=== PATIENT | male | born 1945 | race Two or more races ===

== ENCOUNTER 2016-07-29 13:57 | Inpatient (IN) | payer MEDICARE, OTHER ==
[2016-07-29] MEDS ORDERED: IOPAMIDOL 300 (61%) 150 ML VIAL IV ONE (13:58)
[2016-07-29 16:42] LABS: ABSOLUTE NEUTROPHIL COUNT 7.4 K/mm3 (1.8-7.7); BASO % 0.2 % (0.2-1.0); EOS % 0.1 % (0.9-2.9); HEMATOCRIT 27.2 % (32.0-52.0); HEMOGLOBIN 9.1 gm/l (14.0-18.0); IMM NEUT% 0.3 % (0-1); LYMPH % 11.1 % (15-45); MEAN CORPUSCULAR HEMOGLOBIN 34.5 pg (27.0-31.0); MEAN CORPUSCULAR HGB CONC 33.5 g/dl (33.0-37.0); MEAN PLATELET VOLUME 11.6 fl (7.4-10.4); MONO # 0.4 (0.0-0.8); MONO % 4.8 % (4-12); NEUT % 83.5 % (43-75); PLATELET COUNT 110 K/mm3 (130-400); RED CELL DISTRIBUTION WIDTH 12.4 % (11.5-14.5)
[2016-07-29 16:48] LABS: ALB/GLOB RATIO 1.1 (>1.0); ALBUMIN 3.4 gm/dL (3.5-5.7); CALCIUM 8.7 mg/dL (8.6-10.3)
[2016-07-29] MEDS ORDERED: SODIUM CHLORIDE 0.9% 1,000 ML ONE (17:45)
[2016-07-29] MEDS ORDERED: VANCOMYCIN HCL 1 G/20 ML VIAL ONE (17:55)
[2016-07-29 18:27] LABS: LIPASE 27 U/L (11-82)
--- NOTE | 2016-07-29 19:01 | CT ---
HEAD W/O CON History: Metastatic disease. Weight loss. Comparison: None. Procedure: 1 mm axial images were obtained through the head from the vertex to the base of the skull without intravenous contrast. Stacked reconstructed 5 mm images were then obtained in the axial, coronal and sagittal planes. Findings: The lateral ventricles, cerebral sulci and sylvian fissures are prominent. There is asymmetric encephalomalacia within the left frontal region. No evidence of midline shift is seen. No definite mass or mass effect is visualized. No evidence of intra or extra-axial fluid collections or hemorrhage is seen. Prominent periventricular deep white matter low-attenuation changes are observed. The basilar cisterns are uneffaced. The posterior fossa structures are unremarkable. There appears to be a chronic deformity involving the base of the nasal bones on the left orbit with slight offset of the globes. Metallic suture is suggested within the region of the left zygoma. These findings appear to be chronic. Impression: 1. Diffuse cerebral atrophy. 2. No definite intracranial mass or evidence to suggest acute intracranial hemorrhage. 3. Chronic changes involving the base of the nasal bones in the left orbit with the left globe appearing to be slightly recessed when compared to the right globe. Likely associated encephalomalacia is seen within the underlying left frontal lobe as well. 4. Prominent periventricular deep white matter low-attenuation changes most consistent with small vessel ischemia considering patient age.
--- NOTE | 2016-07-29 19:50 | CT ---
Exam Type: CHEST W/ CON, ABD/PELVIS W/ CON Date and Time: 07/29/2016 6:11 PM Clinical information: Suspected metastasis to the right humerus. Comparison: None Procedure: Imaging device: [employer] Aquilion [address] scanner 1 mm axial images were obtained through the chest, abdomen and pelvis. Stacked reconstructed 3, 4 and 5 mm images were photographed in the axial coronal and sagittal planes. No oral contrast was utilized for this examination. 100 ml of Isovue-300 was injected intravenously. Exam: with intravenous contrast. FINDINGS: Chest: Thyroid Gland: The thyroid gland appears of normal size with no discrete masses visualized. Mediastinum: There are 2 prominent pretracheal lymph nodes identified, one seen on image #44 measuring 17 x 10 mm in size. A second slightly caudal to the first measures 23 x 12 mm in size on image #46. Hilar structures: The hilar structures are normal with no mass or enlarged adenopathy observed. Heart: The heart size is appropriate. Aorta: The ascending and descending aorta and the aortic arch are unremarkable. No significant asymmetric enlargement is observed. Pericardium: No discrete pericardial abnormalities or evidence of significant fluid is observed. Esophagus: The visualized portions of the esophagus are unremarkable. Central airways: Unremarkable. Lung parenchyma: As seen on prior shoulder CT examination, there are numerous subcentimeter nodular foci seen within both hemithoraces, too numerous to count. The majority however appear to be located within the upper lobes. No effusion or pneumothorax is visualized. There is prominent edematous changes within the soft tissues of the right lateral hemithorax which may be related to the patient's humeral fracture. Abdomen/Pelvis: Liver: The liver appears to be of significantly decreased attenuation when compared to the spleen. The findings are most commonly associated with diffuse fatty infiltration with no definitive focal mass visualized. Spleen: The spleen is homogeneous and does not appear to be enlarged. Gallbladder: Normal without enlargement or evidence of adjacent inflammatory changes. Pancreas: Normal without enlargement or evidence of adjacent inflammatory changes. Adrenal glands: A small indeterminate left adrenal nodule is seen on image #102 measuring 8 mm in size. Abdominal aorta: Dense atherosclerotic vascular calcification is seen. There is no focal aneurysm visualized. Kidneys: The kidneys appear to be symmetric in size with no perinephric inflammatory changes are identified. No current findings of hydronephrosis are seen. Bowel structures: The visualized bowel is of normal caliber without evidence of dilatation or obstruction. No free fluid or mesenteric inflammatory changes are identified. Appendix: The appendix is well-visualized and appears to be of normal caliber. No periappendiceal inflammatory changes or CT findings of appendicitis are currently observed. Bladder: The bladder is of normal contour. No wall thickening or significant distention is observed. Hernia: A small fat filled left inguinal hernia is visualized. Adenopathy: No significant enlarged adenopathy is visualized. Osseous structures: There is evidence suggesting a right eccentric L4 vertebral body hemangioma. No lytic or blastic lesion is visualized. Pelvic structures: There is evidence of enlargement of the prostate gland. IMPRESSION: 1. A comminuted fracture of the proximal right humerus with edematous changes within the soft tissues of the lateral right hemithorax possibly secondary to the previous trauma. 2. Mild mediastinal adenopathy. 3. Reidentification of too numerous to count subcentimeter nodular foci throughout both hemithoraces, predominating within the upper lung zones. The possibility of metastatic disease is raised, an additional consideration would be a chronic infectious or inflammatory process such as granulomatous disease. 4. Findings most commonly associated with diffuse fatty infiltration of the liver. 5. A small indeterminate 8 mm left adrenal nodule. 6. A small fat filled left inguinal hernia. 7. An enlarged prostate gland.
--- NOTE | 2016-07-29 19:56 | CT ---
NECK SOFT TISSUE W/ CON History: A suspected metastatic pathologic fracture to the right shoulder. Comparison: None. Procedure: 1 mm axial images were obtained through the neck following the administration of 50cc's of Isovue-300 intravenous contrast. Stacked reconstructed 3 mm images were then photographed in the axial, coronal and sagittal planes. Findings: Images of the intracranial contents appear to be relatively unremarkable. There is note made of an area of encephalomalacia within the left frontal region. A deformity of the base of the nasal bones is identified and appearing to involve the left orbit with metallic suture seen in the region of the left zygoma. The posterior pharyngeal tissues appear to be normal and symmetric. The parotid and submandibular glands are unremarkable. The appearance of the tongue base is within expected. The thyroid gland is unremarkable. No enlarged cervical chain adenopathy is visualized. Prominent mid cervical spondylosis changes are incidentally seen. Scans to the upper lung zones again demonstrate the numerous subcentimeter nodular foci which may reflect an infectious or inflammatory process such as granulomatous disease though metastasis cannot be excluded. The central airways appear to be clear. Impression: 1. No discrete mass or enlarged adenopathy is visualized. 2. Numerous subcentimeter nodular foci within the visualized upper lung zones with considerations including infectious or inflammatory process such as granulomatous disease versus metastasis. 3. Mid cervical spondylosis changes. 4. A chronic deformity involving the base of the nasal bones and left orbit with evidence of a recessed left globe.
[2016-07-29] MEDS ORDERED: OXYCODONE/ACETAMINOPHEN 5/325 MG TABLET ONE (20:32)
[2016-07-29] MEDS ORDERED: MAGNESIUM HYDROXIDE 30 ML UDCUP PO PRN (23:55)
[2016-07-29] MEDS ORDERED: ACETAMINOPHEN 325 MG TABLET PO PRN (23:55)
[2016-07-29] MEDS ORDERED: BISACODYL 10 MG SUP PR PRN (23:55)
[2016-07-29] MEDS ORDERED: MENTHOL/CETYLPYRD 1 EACH LOZENGE PO PRN (23:55)
[2016-07-29] MEDS ORDERED: BISACODYL 5 MG TABLET.EC PO PRN (23:55)
[2016-07-29] MEDS ORDERED: BLISTEX LIPSTICK 1 EACH TP PRN (23:55)
[2016-07-29] MEDS ORDERED: SODIUM CHLORIDE 0.9% 100 ML IV PRN (23:55)
[2016-07-30] MEDS ORDERED: MULTIVITAMINS 10 ML, FOLIC ACID 2 MG, MAGNESIUM SULFATE 1 G/2 ML 2 G, THIAMINE HCL 100 ... IV ONE ×5 (00:02)
[2016-07-30] MEDS ORDERED: MULTIVITAMINS 1,000 ML IV ONE (00:50)
[2016-07-30] MEDS ORDERED: SODIUM CHLORIDE 0.9% 1,000 ML ONE (00:51)
[2016-07-30] MEDS ORDERED: PUMP TUBING ONE (01:05)
[2016-07-30] MEDS ORDERED: IV START KIT ONE ×2 (01:12→01:41)
[2016-07-30 01:28] VITALS: BMI 19.3
[2016-07-30] MEDS: HYDROCODONE/ACETAMINOPHEN 5/325MG TABLET PO PRN ×4 (02:07→19:59)
[2016-07-30] MEDS ORDERED: METOPROLOL SUCCINATE (XL) 50 MG TAB.PRT.SR PO ONE (03:00)
[2016-07-30] MEDS: METOPROLOL SUCCINATE (XL) 50 MG TAB.PRT.SR PO SCH ×2 (03:04→08:35)
[2016-07-30 03:54] LABS: PH,URINE 6.5 (5.0-8.0); URINE BILIRUBIN NEGATIVE (NEGATIVE); URINE BLOOD 1+ (NEGATIVE); URINE GLUCOSE (UA) NEGATIVE (NEGATIVE); URINE LEUKOCYTE ESTERASE NEGATIVE (NEGATIVE); URINE NITRITE NEGATIVE (NEGATIVE); URINE PROTEIN NEGATIVE (NEGATIVE)
[2016-07-30 03:55] LABS: URINE UROBILINOGEN 4 mg/dL (0-1 mg/dl)
[2016-07-30 03:56] LABS: URINE APPEARANCE SL CLOUDY; URINE COLOR DARK YELLOW
[2016-07-30 04:00] LABS: URINE WBC 0-1 /hpf
[2016-07-30] MEDS ORDERED: TUBERCULIN PURIF PROT DERIV ID ONE ×3 (05:01→09:18)
[2016-07-30 07:01] LABS: ABSOLUTE NEUTROPHIL COUNT 5.2 K/mm3 (1.8-7.7); BASO % 0.3 % (0.2-1.0); EOS % 0.6 % (0.9-2.9); HEMATOCRIT 20.9 % (32.0-52.0); HEMOGLOBIN 7.1 gm/l (14.0-18.0); IMM NEUT% 0.4 % (0-1); LYMPH # 1.1 (1.0-4.8); LYMPH % 15.3 % (15-45); MEAN CELL VOLUME 101.5 fl (80.0-94.0); MEAN CORPUSCULAR HEMOGLOBIN 34.5 pg (27.0-31.0); MEAN PLATELET VOLUME 11.3 fl (7.4-10.4); MONO # 0.5 (0.0-0.8); MONO % 7.4 % (4-12); PLATELET COUNT 92 K/mm3 (130-400); RED CELL DISTRIBUTION WIDTH 12.4 % (11.5-14.5)
[2016-07-30 07:16] LABS: INR 1.28; PROTHROMBIN TIME 13.7 SECONDS (9.3-11.4)
[2016-07-30 07:34] LABS: ALBUMIN 2.5 gm/dL (3.5-5.7); CALCIUM 7.7 mg/dL (8.6-10.3); MAGNESIUM 2.5 mg/dL (1.9-2.7)
[2016-07-30] MEDS: ASPIRIN (ENTERIC COATED) 81 MG TABLET.EC PO SCH (08:35)
[2016-07-30] MEDS: DOCUSATE SODIUM 100 MG CAPSULE PO SCH ×2 (08:35→20:01)
[2016-07-30] MEDS: PANTOPRAZOLE 40 MG TABLET DR PO SCH (08:35)
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
[2016-07-30] MEDS: APIXABAN 5 MG TABLET PO SCH ×2 (10:40→21:13)
[2016-07-30] MEDS ORDERED: FUROSEMIDE 20 MG/2 ML VIAL IV ONE (11:21)
[2016-07-30] MEDS ORDERED: DIPHENHYDRAMINE HCL 25 MG CAPSULE PO ONE (11:21)
[2016-07-30] MEDS ORDERED: SODIUM CHLORIDE 0.9% 500 ML IV PRN (11:21)
--- NOTE | 2016-07-30 11:21 | PDOC43 ---
- Subjective Chief Complaint: shoulder pain, weight loss. Patient reports feeling pretty good. A little dyspnea, but R shoulder pain is his main complaint. - Objective Vital Signs Temperature 98.1 F 07/30/16 07:00 Pulse Rate 107 07/30/16 07:00 Respiratory Rate 18 07/30/16 07:00 Blood Pressure 141/72 07/30/16 07:00 O2 Saturation by Pulse Oximetry 100 07/30/16 07:00 Oxygen Delivery Method Room Air Oxygen Flow Rate 0 Vital Signs Last 12 Hours Temp Pulse Resp BP Pulse Ox 07/30/16 07:00 98.1 F 107 18 141/72 100 07/30/16 03:41 98.4 F 125 20 122/77 98 07/30/16 02:50 130 22 136/82 98 07/30/16 01:00 98.4 F 132 22 133/93 100 Intake and Output 07/28/16 07/29/16 07/30/16 23:59 23:59 23:59 Intake Total 2150 Output Total 80 Balance 2069 General: Alert, Cooperative, No Acute Distress HEENT: Atraumatic Lungs: Clear to Auscultation Bilaterally Cardiovascular: Irregular, No Murmur Abdomen: Soft, Normal Bowel Sounds, Non-Distended, No Tenderness Extremities: Other (R shoulder with pain, swelling, bruising. Pulse good in hand.), No Edema Skin: Other (Pale) Neurological: Normal Speech Psych/Mental Status: Normal Affect (Appears to be generally feeling better overall.) Laboratory 07/30/16 06:30 07/30/16 06:30 07/30/16 07/30/16 07/30/16 06:30 03:50 01:30 RBC 2.06 L MCV 101.5 H MCH 34.5 H PT 13.7 H VBG Lactate 2.8 H Calcium 7.7 L Total Bilirubin 3.1 H AST 81 H Total Protein 5.0 L Albumin 2.5 L Urine Urobilinogen 4 mg/dl H Current Medications: Current meds reviewed in EMR. Active Medications Acetaminophen (Tylenol) 650 mg PO Q6H PRN PRN Reason: Pain or Temperature > 100.5 F Acetaminophen/Hydrocodone Bitart ([place]y 5/325) 0.5 - 1 tab PO Q4H PRN PRN Reason: Pain Last Admin: 07/30/16 08:35 Dose: 1 tab Amitriptyline HCl (Elavil) 50 mg PO BEDTIME [facility] Apixaban (Eliquis) 5 mg PO BID [facility] Last Admin: 07/30/16 10:40 Dose: 5 mg Aspirin (Ecotrin) 81 mg PO DAILY [facility] Last Admin: 07/30/16 08:35 Dose: 81 mg Benzocaine/Menthol (Cepacol) 1 each PO PRN PRN PRN Reason: Sore Throat Bisacodyl (Dulcolax) 10 mg HI DAILY PRN PRN Reason: Constipation Bisacodyl (Dulcolax) 5 mg PO DAILY PRN PRN Reason: Constipation Docusate Sodium (Colace) 100 mg PO BID [facility] Last Admin: 07/30/16 08:35 Dose: 100 mg Sodium Chloride (Sodium Chloride 0.9%) 100 mls @ 25 mls/hr IV PRN PRN PRN Reason: Flush Lorazepam (Ativan) 1 mg IV Q2H PRN PRN Reason: Agitation / withdrawal Magnesium Hydroxide (Milk Of Magnesia) 30 ml PO DAILY PRN PRN Reason: Constipation Metoprolol Succinate (Toprol Xl) 50 mg PO DAILY [facility] Last Admin: 07/30/16 08:35 Dose: 50 mg Pantoprazole Sodium (Protonix) 40 mg PO DAILY [facility] Last Admin: 07/30/16 08:35 Dose: 40 mg Petrolatum/Paraffin/Mineral Oil (Blistex) 1 each TP PRN PRN PRN Reason: Dry and/or chapped lips Sodium Chloride (Normal Saline 10ml Flush) 10 - 50 ml IV PRN PRN PRN Reason: IV Flush Last Admin: 07/30/16 08:36 Dose: 10 ml Sodium Chloride (Normal Saline 10ml Flush) 10 ml IV Q8HR [facility] - Problems: Assessment/Plan (1) Positive blood culture Status: Suspected Assessment/Plan: Coag neg staph, suspect this is contaminant. Will monitor for other problems, but doubt this is significant. (2) Alcoholic cardiomyopathy Status: Chronic Assessment/Plan: Stable. (3) Alcoholism Status: Chronic Assessment/Plan: CIWA. Anticipate lorazepam, and monitor. Banana bag yesterday. (4) Atrial fibrillation Qualifiers: Atrial fibrillation type: chronic Qualifier Code: (I48.2) Chronic atrial fibrillation Status: Chronic Assessment/Plan: Rate sl high, on beta allen. Anticoagulated, will continue for now. (5) Hypertension Qualifiers: Hypertension type: essential hypertension Qualifier Code: (I10) Essential (primary) hypertension Status: Chronic Assessment/Plan: stable. Continue meds. (6) Hx of traumatic brain injury Status: Suspected Assessment/Plan: Chronic, stable. (7) Blood loss anemia Status: Acute Assessment/Plan: suspect related to fracture blood loss, more than usual due to Eliquis. Anticipate transfusion. recheck in am. (8) Fracture, humerus closed Qualifiers: Encounter type: subsequent encounter Humerus Location: proximal Fracture alignment: displaced Laterality: right Status: Acute Assessment/Plan: CT had suggested pathologic fracture, but initial review with ortho not so sure. Dr Gamble mentions MRI could help sort out if there was a lytic lesion (vs hematoma) In the meantime, using vicodin for pain (not NSAIDs due to anemia/blood loss), and sling - appreciate Dr Gamble bringing sling. (9) Abnormal chest CT Status: Acute Assessment/Plan: Suggests granulomatous dz, doing testing - PPD, quantiferon, AFB. FHx TB, but pt reports previous neg testing. (10) Elevated PSA Status: Acute Assessment/Plan: Uncertain significance, but would doubt this is related to the TNTC nodules on lungs. VTE Prophylaxis: on eliquis Disposition: plan blood, checking PPD/TB testing, and consider whether MRI has to be done.
--- NOTE | 2016-07-30 11:24 | PDOC36 ---
Provider Note Note: Ortho Consult Please see dictated consultation for full report Summary: Pt is a 71 yr old male with a right proximal humerus frx. NWB on the RUE at this time. Sling for comfort. Agree with plans for transfusion considering his HCT is 20. Discussed with the patient his options for his right shoulder injury. Due to the patient's hx of EtOH abuse, will likely recommend Non-op treatment for his shoulder fracture.
[2016-07-30] MEDS: MULTIVIT W/ MINERALS 1 TAB TABLET PO SCH (13:08)
[2016-07-30] MEDS ORDERED: DIPHENHYDRAMINE HCL 25 MG CAPSULE ONE (15:23)
[2016-07-30] MEDS ORDERED: BLOOD Y PLUMSET W/CASSETTE ONE ×2 (15:23→18:52)
[2016-07-30] MEDS ORDERED: SODIUM CHLORIDE 0.9% 250 ML IV ONE (15:24)
[2016-07-30] MEDS: LORAZEPAM 0.5 MG TABLET PO SCH ×2 (15:32→20:42)
[2016-07-30] MEDS: LORAZEPAM 2 MG/ML 1ML SDV IV PRN ×2 (17:19→19:58)
[2016-07-30] MEDS ORDERED: FUROSEMIDE 20 MG/2 ML VIAL ONE (18:23)
[2016-07-30] MEDS: AMITRIPTYLINE HCL 50 MG TABLET PO SCH (20:01)
[2016-07-30] MEDS ORDERED: METOPROLOL TARTRATE 50 MG TABLET PO ONE (21:40)
[2016-07-31] MEDS ORDERED: METOPROLOL TARTRATE 50 MG TABLET ONE (00:17)
[2016-07-31] MEDS: QUETIAPINE FUMARATE 25 MG TABLET PO SCH (00:24)
[2016-07-31 06:47] LABS: HEMATOCRIT 40.1 % (32.0-52.0); HEMOGLOBIN 13.3 gm/l (14.0-18.0)
[2016-07-31 07:15] LABS: ALB/GLOB RATIO 1.1 (>1.0); ALBUMIN 3.2 gm/dL (3.5-5.7); CALCIUM 8.2 mg/dL (8.6-10.3); MAGNESIUM 1.8 mg/dL (1.9-2.7)
[2016-07-31] MEDS: LORAZEPAM 0.5 MG TABLET PO SCH (11:21)
--- NOTE | 2016-07-31 11:21 | PDOC43 ---
- Subjective Chief Complaint: shoulder pain, weight loss. Patient reported to have increased confusion, some agitation last night. Discussed with Erica (sister), and he has been having more confusion in the last month, and has had some hx of confusion with withdrawal as well; but just especially in the last month. Pt sleeping, wakes slightly when stimulated, but doesn't answer questions. - Objective Vital Signs Temperature 97.8 F 07/31/16 07:00 Pulse Rate 67 07/31/16 07:00 Respiratory Rate 20 07/31/16 07:00 Blood Pressure 175/80 07/31/16 07:00 O2 Saturation by Pulse Oximetry 94 07/31/16 03:30 Oxygen Delivery Method Room Air Oxygen Flow Rate 0 Vital Signs Last 12 Hours Temp Pulse Resp BP Pulse Ox 07/31/16 07:00 97.8 F 67 20 175/80 07/31/16 03:30 98.2 F 56 18 153/46 94 07/30/16 23:00 97.6 F 110 20 138/81 100 Intake and Output 07/29/16 07/30/16 07/31/16 23:59 23:59 23:59 Intake Total 3320 500 Output Total 680 250 Balance 2640 250 General: Other (appears quite sleepy, doesn't respond much.) Lungs: Clear to Auscultation Bilaterally, Normal Air Movement Cardiovascular: Other (fairly regular. No significant murmur noted.) Abdomen: Soft, Hypoactive Bowel Sounds, Non-Distended Extremities: Other (R shoulder with bruising noted.), No Edema Skin: Normal Color Neurological: Other (no focal def, but less responsive, less interactive from yesterday.) Laboratory 07/31/16 05:20 07/31/16 05:30 07/31/16 07/30/16 05:30 11:40 Calcium 8.2 L Magnesium 1.8 L Total Bilirubin 4.4 H AST 107 H ALT 55 H Alkaline Phosphatase 114 H Total Protein 6.0 L Albumin 3.2 L Crossmatch See Detail Laboratory Tests 07/29/16 07/30/16 07/31/16 16:05 06:30 05:20 Hgb 9.1 L 7.1 L D 13.3 L D INR 1.28 Current Medications: Current meds reviewed in EMR. Active Medications Acetaminophen (Tylenol) 650 mg PO Q6H PRN PRN Reason: Pain or Temperature > 100.5 F Acetaminophen/Hydrocodone Bitart ([place] 5/325) 0.5 - 1 tab PO Q4H PRN PRN Reason: Pain Last Admin: 07/30/16 19:59 Dose: 1 tab Amitriptyline HCl (Elavil) 50 mg PO BEDTIME [facility] [place] Last Admin: 07/30/16 20:01 Dose: 50 mg Apixaban (Eliquis) 5 mg PO BID [facility] [place] Last Admin: 07/30/16 21:13 Dose: 5 mg Aspirin (Ecotrin) 81 mg PO DAILY [facility] [place] Last Admin: 07/30/16 08:35 Dose: 81 mg Benzocaine/Menthol (Cepacol) 1 each PO PRN PRN PRN Reason: Sore Throat Bisacodyl (Dulcolax) 10 mg SD DAILY PRN PRN Reason: Constipation Bisacodyl (Dulcolax) 5 mg PO DAILY PRN PRN Reason: Constipation Docusate Sodium (Colace) 100 mg PO BID [facility] [place] Last Admin: 07/30/16 20:01 Dose: 100 mg Sodium Chloride (Sodium Chloride 0.9%) 100 mls @ 25 mls/hr IV PRN PRN PRN Reason: Flush Sodium Chloride (Sodium Chloride 0.9%) 500 mls @ 25 mls/hr IV .Q20H PRN PRN Reason: Blood Transfusion Lorazepam (Ativan) 1 mg IV Q2H PRN PRN Reason: Agitation / withdrawal Last Admin: 07/30/16 19:58 Dose: 1 mg Lorazepam (Ativan) 0.5 mg PO TID [facility] [place] Last Admin: 07/30/16 20:42 Dose: 0.5 mg Magnesium Hydroxide (Milk Of Magnesia) 30 ml PO DAILY PRN PRN Reason: Constipation Metoprolol Succinate (Toprol Xl) 100 mg PO DAILY [facility] [place] Multivitamins/Minerals (Theragran-M) 1 tab PO DAILY [facility] [place] Last Admin: 07/30/16 13:08 Dose: 1 tab Pantoprazole Sodium (Protonix) 40 mg PO DAILY [facility] [place] Last Admin: 07/30/16 08:35 Dose: 40 mg Petrolatum/Paraffin/Mineral Oil (Blistex) 1 each TP PRN PRN PRN Reason: Dry and/or chapped lips Quetiapine Fumarate (Seroquel) 12.5 mg PO BEDTIME [facility] [place] Last Admin: 07/31/16 00:24 Dose: 12.5 mg Sodium Chloride (Normal Saline 10ml Flush) 10 - 50 ml IV PRN PRN PRN Reason: IV Flush Last Admin: 07/30/16 19:59 Dose: 10 ml Sodium Chloride (Normal Saline 10ml Flush) 10 ml IV Q8HR [facility] [place] Last Admin: 07/31/16 06:11 Dose: Not Given - Problems: Assessment/Plan (1) Positive blood culture Status: Suspected Assessment/Plan: Coag neg staph, suspect this is contaminant. Will monitor for other problems, but doubt this is significant. Follow up blood cultures pending. (2) Alcoholic cardiomyopathy Status: Chronic Assessment/Plan: Stable. Check BNP (3) Alcoholism Status: Chronic Assessment/Plan: CIWA. Anticipate lorazepam, and monitor. Banana bag given. Started on Seroquel yesterday; was agitated, climbing out of bed yesterday. With agitation and reported confusion - consider w/d vs hepatic encephalopathy - check ammonia, consider lactulose. (4) Atrial fibrillation Qualifiers: Atrial fibrillation type: chronic Qualifier Code: (I48.2) Chronic atrial fibrillation Status: Chronic Assessment/Plan: Rate improved after transfusion, is on beta allen. Anticoagulated, will continue for now. (5) Hypertension Qualifiers: Hypertension type: essential hypertension Qualifier Code: (I10) Essential (primary) hypertension Status: Chronic Assessment/Plan: stable, sl elevated. HR improved after transfusion. Continue meds. (6) Hx of traumatic brain injury Status: Suspected Assessment/Plan: Chronic, stable. (7) Blood loss anemia Status: Acute Assessment/Plan: suspect related to fracture blood loss, more than usual due to Eliquis. Good improvement in Hb with transfusion. Iron studies pending still. (8) Fracture, humerus closed Qualifiers: Encounter type: subsequent encounter Humerus Location: proximal Fracture alignment: displaced Laterality: right Status: Acute Assessment/Plan: CT had suggested pathologic fracture, but initial review with ortho does not feel this way. Dr Gamble mentions MRI could help sort out if there was a lytic lesion (vs hematoma) In the meantime, using vicodin for pain (not NSAIDs due to anemia/blood loss), and sling - appreciate Dr Gamble bringing sling. (9) Abnormal chest CT Status: Acute Assessment/Plan: Suggests granulomatous dz, doing testing - PPD, quantiferon (should be back today), AFB. FHx TB, but pt reports previous neg testing. Saturations good. (10) Elevated PSA Status: Acute Assessment/Plan: Uncertain significance, but would doubt this is related to the TNTC nodules on lungs. (11) Encephalopathy acute Status: Suspected Assessment/Plan: Suspected hepatic encephalopathy, sister reports increasing confusion over last month. Check Ammonia, start lactulose. Try to hold benzodiazepines, other sedating meds. CT head without acute changes. 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 Disposition: plan blood, checking PPD/TB testing, and consider whether MRI has to be done. Hope to have him return to home, but if confusion continues, may require placement. Additional Comments: Systems Cardiovascular - appears stable Pulmonary - sats good, appears stable. Granulomatous dz on lungs noted, testing for TB ID - pos blood culture, but suspect false pos; testing for TB pending. Hepatic - check ammonia, monitor LFTs. Heme/Onc - hemoglobin improved after transfusion; checking for iron def. Elevated PSA noted. Renal - stable. FEN - not eating today, consider IVF. Derm - Neuro - chronic alcoholism; reported confusion over last month, marked sedation currents (w/d vs med vs hep enceph vs other) - bladder scan prn. Renal status stable. Elevated PSA noted.
[2016-07-31] MEDS: LACTULOSE 20 G/30 ML UDCUP PO SCH (12:58)
[2016-07-31] MEDS: ASPIRIN (ENTERIC COATED) 81 MG TABLET.EC PO SCH (12:59)
[2016-07-31] MEDS: APIXABAN 5 MG TABLET PO SCH ×2 (12:59→20:40)
[2016-07-31] MEDS: METOPROLOL SUCCINATE (XL) 50 MG TAB.PRT.SR PO SCH (12:59)
[2016-07-31] MEDS: MULTIVIT W/ MINERALS 1 TAB TABLET PO SCH (12:59)
[2016-07-31] MEDS: PANTOPRAZOLE 40 MG TABLET DR PO SCH (13:00)
[2016-07-31] MEDS: DOCUSATE SODIUM 100 MG CAPSULE PO SCH (17:40)
[2016-07-31] MEDS: AMITRIPTYLINE HCL 50 MG TABLET PO SCH (20:40)
[2016-07-31] MEDS: HYDROCODONE/ACETAMINOPHEN 5/325MG TABLET PO PRN (20:53)
[2016-08-01] MEDS: HYDROCODONE/ACETAMINOPHEN 5/325MG TABLET PO PRN ×2 (00:40→21:20)
[2016-08-01] MEDS: LORAZEPAM 2 MG/ML 1ML SDV IV PRN (00:41)
[2016-08-01 05:29] LABS: IRON 41 ug/dL (50-212); TOTAL IRON BINDING CAPACITY 174 ug/dL (261-478); TRANSFERRIN 124 mg/dL (203-362)
[2016-08-01 06:24] LABS: ABSOLUTE NEUTROPHIL COUNT 2.9 K/mm3 (1.8-7.7); BASO # 0.1 K/mm3 (0.0-0.2); EOS # 0.1 (0.0-0.5); EOS % 1.4 % (0.9-2.9); HEMATOCRIT 33.9 % (32.0-52.0); HEMOGLOBIN 11.5 gm/l (14.0-18.0); IMM NEUT% 0.2 % (0-1); LYMPH # 1.5 (1.0-4.8); LYMPH % 30.7 % (15-45); MEAN CORPUSCULAR HEMOGLOBIN 32.6 pg (27.0-31.0); MEAN CORPUSCULAR HGB CONC 33.9 g/dl (33.0-37.0); MEAN PLATELET VOLUME 11.1 fl (7.4-10.4); MONO # 0.5 (0.0-0.8); NEUT % 57.7 % (43-75); PLATELET COUNT 111 K/mm3 (130-400); RED CELL DISTRIBUTION WIDTH 17.1 % (11.5-14.5)
[2016-08-01 06:48] LABS: ALBUMIN 2.6 gm/dL (3.5-5.7); MAGNESIUM 1.6 mg/dL (1.9-2.7)
[2016-08-01] MEDS: LACTULOSE 20 G/30 ML UDCUP PO SCH (09:56)
[2016-08-01] MEDS: MULTIVIT W/ MINERALS 1 TAB TABLET PO SCH (09:56)
[2016-08-01] MEDS: METOPROLOL SUCCINATE (XL) 50 MG TAB.PRT.SR PO SCH (09:57)
[2016-08-01] MEDS: APIXABAN 5 MG TABLET PO SCH ×2 (09:57→21:20)
[2016-08-01] MEDS: ASPIRIN (ENTERIC COATED) 81 MG TABLET.EC PO SCH (09:57)
--- NOTE | 2016-08-01 11:51 | PDOC43 ---
- Subjective Chief Complaint: shoulder pain, weight loss. Patient reported to be more awake, alert, but still sl sleepy, confused. Had some breakfast, but sitting angled in bed, partially exposed/diaper not covering him well. Reports pain doing ok, arm in sling. - Objective Vital Signs Temperature 97.7 F 08/01/16 07:21 Pulse Rate 95 08/01/16 07:21 Respiratory Rate 16 08/01/16 07:21 Blood Pressure 152/98 08/01/16 07:21 O2 Saturation by Pulse Oximetry 100 08/01/16 07:21 Oxygen Delivery Method Room Air Oxygen Flow Rate 0 Vital Signs Last 12 Hours Temp Pulse Resp BP Pulse Ox 08/01/16 07:21 97.7 F 95 16 152/98 100 08/01/16 04:00 98.1 F 98 16 135/78 100 08/01/16 02:00 16 07/31/16 23:36 98 F 110 16 155/101 100 Intake and Output 07/30/16 07/31/16 08/01/16 23:59 23:59 23:59 Intake Total 3320 787 600 Output Total 680 1572 100 Balance 2640 -785 500 Intake & Output 07/31/16 08/01/16 08/01/16 23:59 07:59 15:59 Intake Total 287 600 Output Total 1322 100 Balance -1035 500 Weight 50.2 kg Intake: PO Intake 287 600 Output: Void 1322 100 General: Other (more alert today than yesterday. ANswers some questions, usually in [place] (but came with cloth presser). Appears to have eaten 25 -33% of breakfast.) Lungs: Clear to Auscultation Bilaterally Cardiovascular: Irregular (rate controlled.) Abdomen: Soft, Normal Bowel Sounds, Non-Distended, No Tenderness Genitourinary: Normal Male Genitalia Extremities: Other (R arm in sling.), No Edema Skin: Normal Color, Other (zero induration or any change at PPD site 07/30.) Neurological: Other (Gets month correct, difficult to understand other orientation answers. Not magdalene tremulous nor agitated now. Reported to be confused on how to use fork earlier.) Psych/Mental Status: Other (sl sleepy, but answers, appears better than yesterday, not to how he was at admission, though.) Laboratory 08/01/16 05:30 08/01/16 05:30 08/01/16 07/30/16 05:30 05:00 RBC 3.53 L MCV 96.0 H MCH 32.6 H RDW 17.1 H Estimated GFR 83 H Calcium 8.0 L Magnesium 1.6 L Iron 41 L TIBC 174 L Transferrin 124 L Ferritin 384.7 H Total Bilirubin 3.5 H AST 80 H B-Natriuretic Peptide 1070 H Total Protein 5.3 L Albumin 2.6 L Current Medications: Current meds reviewed in EMR. Active Medications Acetaminophen (Tylenol) 650 mg PO Q6H PRN PRN Reason: Pain or Temperature > 100.5 F Acetaminophen/Hydrocodone Bitart ([place] 5/325) 0.5 - 1 tab PO Q4H PRN PRN Reason: Pain Last Admin: 08/01/16 00:40 Dose: 1 tab Amitriptyline HCl (Elavil) 50 mg PO BEDTIME [facility] Last Admin: 07/31/16 20:40 Dose: 50 mg Apixaban (Eliquis) 5 mg PO BID [facility] Last Admin: 08/01/16 09:57 Dose: 5 mg Aspirin (Ecotrin) 81 mg PO DAILY [facility] Last Admin: 08/01/16 09:57 Dose: 81 mg Benzocaine/Menthol (Cepacol) 1 each PO PRN PRN PRN Reason: Sore Throat Sodium Chloride (Sodium Chloride 0.9%) 100 mls @ 25 mls/hr IV PRN PRN PRN Reason: Flush Sodium Chloride (Sodium Chloride 0.9%) 500 mls @ 25 mls/hr IV .Q20H PRN PRN Reason: Blood Transfusion Lactulose (Enulose) 10 g PO DAILY [facility] Last Admin: 08/01/16 09:56 Dose: 10 g Lorazepam (Ativan) 1 mg IV Q2H PRN PRN Reason: Agitation / withdrawal Last Admin: 08/01/16 00:41 Dose: 1 mg Lorazepam (Ativan) 0.5 mg PO TID [facility] Last Admin: 07/31/16 11:21 Dose: Not Given Metoprolol Succinate (Toprol Xl) 100 mg PO DAILY [facility] Last Admin: 08/01/16 09:57 Dose: 100 mg Multivitamins/Minerals (Theragran-M) 1 tab PO DAILY [facility] Last Admin: 08/01/16 09:56 Dose: 1 tab Pantoprazole Sodium (Protonix) 40 mg PO DAILY [facility] Last Admin: 07/31/16 13:00 Dose: Not Given Petrolatum/Paraffin/Mineral Oil (Blistex) 1 each TP PRN PRN PRN Reason: Dry and/or chapped lips Quetiapine Fumarate (Seroquel) 12.5 mg PO BEDTIME [facility] Last Admin: 07/31/16 00:24 Dose: 12.5 mg Sodium Chloride (Normal Saline 10ml Flush) 10 - 50 ml IV PRN PRN PRN Reason: IV Flush Last Admin: 07/30/16 19:59 Dose: 10 ml Sodium Chloride (Normal Saline 10ml Flush) 10 ml IV Q8HR [facility] Last Admin: 08/01/16 09:56 Dose: 10 ml - Problems: Assessment/Plan (1) Fracture, humerus closed Qualifiers: Encounter type: subsequent encounter Humerus Location: proximal Fracture alignment: displaced Laterality: right Status: Acute Assessment/Plan: CT had suggested pathologic fracture, but initial review with ortho does not feel this way. Dr Gamble mentions MRI could help sort out if there was a lytic lesion (vs hematoma) In the meantime, using vicodin for pain no nSAID due to Eliquis and sling - appreciate Dr Gamble bringing sling. (2) Positive blood culture Status: Ruled-out Assessment/Plan: Coag neg staph, suspect contaminant. Will monitor for other problems, but doubt this is significant. Follow up blood cultures negative so far. (3) Alcoholic cardiomyopathy Status: Chronic Assessment/Plan: Stable. Elevated BNP; anticipate resumption of diuretics (4) Alcoholism Status: Chronic Assessment/Plan: CIWA. Anticipate lorazepam, and monitor. Banana bag given. Started on Seroquel 12/30 pm; was agitated, climbing out of bed previously, better today. With agitation and reported confusion - consider w/d vs hepatic encephalopathy - pt with nonelevated ammonia, but started lactulose. (5) Atrial fibrillation Qualifiers: Atrial fibrillation type: chronic Qualifier Code: (I48.2) Chronic atrial fibrillation Status: Chronic Assessment/Plan: Rate improved after transfusion, is on beta allen. Anticoagulated, will continue for now. (6) Hypertension Qualifiers: Hypertension type: essential hypertension Qualifier Code: (I10) Essential (primary) hypertension Status: Chronic Assessment/Plan: stable, sl elevated. HR improved after transfusion. Continue meds. (7) Hx of traumatic brain injury Status: Suspected Assessment/Plan: Chronic, stable. (8) Blood loss anemia Status: Acute Assessment/Plan: suspect related to fracture blood loss, more than usual due to Eliquis. Good improvement in Hb with transfusion. Iron studies not suspicious for deficiency. (9) Abnormal chest CT Status: Acute Assessment/Plan: Suggests granulomatous dz, doing testing - PPD, quantiferon (should be back by 1 3), AFB. FHx TB, but pt reports previous neg testing. Saturations 100% on RA. (10) Elevated PSA Status: Acute Assessment/Plan: Uncertain significance, but would doubt this is related to the TNTC nodules on lungs. (11) Encephalopathy acute Status: Suspected Assessment/Plan: Suspected hepatic encephalopathy, although ammonia not magdalene elevated. Also consider withdrawal, dementia, other metabolic enceph. sister reports increasing confusion over last month. Started lactulose. Try to hold benzodiazepines, other sedating meds. CT head without acute changes. (12) Elevated PSA, between 10 and less than 20 ng/ml Status: Suspected Assessment/Plan: Noted, along with prostate enlargement. However, other health issues preclude addressing this presently. 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 Disposition: plan blood, checking PPD/TB testing, and consider whether MRI has to be done. Hope to have him return to home, but if confusion continues, may require placement. Additional Comments: Systems Cardiovascular - appears stable Pulmonary - sats good, appears stable. Granulomatous dz on lungs noted, testing for TB in progress. ID - pos blood culture, felt to be false pos; testing for TB pending. PPD appears neg so far Hepatic - ammonia neg. sl improvement in LFTs. Heme/Onc - hemoglobin improved after transfusion; checking for iron def. Elevated PSA noted. Renal - stable. FEN - not eating today, consider IVF. Derm - Neuro - chronic alcoholism; reported confusion over last month, marked sedation sl improved today (w/d vs med vs hep enceph vs other) - bladder scan prn. Renal status stable. Elevated PSA noted.
[2016-08-01] MEDS: Magnesium Oxide 400 MG TABLET PO SCH ×2 (13:13→21:20)
[2016-08-01] MEDS: SPIRONOLACTONE 25 MG TABLET PO SCH (13:13)
[2016-08-01] MEDS: FUROSEMIDE 20 MG TABLET PO SCH (13:13)
[2016-08-01] MEDS: Potassium Chloride ORAL SOLN 20 MEQ/15 ML UDCUP PO SCH (17:24)
[2016-08-02 06:02] LABS: ABSOLUTE NEUTROPHIL COUNT 4.2 K/mm3 (1.8-7.7); BASO % 0.7 % (0.2-1.0); EOS % 0.3 % (0.9-2.9); HEMATOCRIT 36.8 % (32.0-52.0); HEMOGLOBIN 12.3 gm/l (14.0-18.0); IMM NEUT% 0.3 % (0-1); MEAN CELL VOLUME 97.9 fl (80.0-94.0); MEAN CORPUSCULAR HEMOGLOBIN 32.7 pg (27.0-31.0); MEAN CORPUSCULAR HGB CONC 33.4 g/dl (33.0-37.0); MONO # 0.7 (0.0-0.8); MONO % 11.1 % (4-12); NEUT % 71.6 % (43-75); PLATELET COUNT 123 K/mm3 (130-400); RED CELL DISTRIBUTION WIDTH 16.9 % (11.5-14.5)
[2016-08-02 06:35] LABS: ALB/GLOB RATIO 0.9 (>1.0); CALCIUM 8.4 mg/dL (8.6-10.3); MAGNESIUM 1.6 mg/dL (1.9-2.7)
[2016-08-02] MEDS ORDERED: METOPROLOL TARTRATE 1 MG/ML 5ML VIAL ONE ×3 (07:58→11:43)
[2016-08-02] MEDS: METOPROLOL TARTRATE 1 MG/ML 5ML VIAL IV ONE ×3 (08:03→11:47)
[2016-08-02] MEDS: LACTULOSE 20 G/30 ML UDCUP PO SCH (08:04)
[2016-08-02] MEDS: Potassium Chloride ORAL SOLN 20 MEQ/15 ML UDCUP PO SCH ×3 (08:04→21:08)
[2016-08-02] MEDS: ASPIRIN (ENTERIC COATED) 81 MG TABLET.EC PO SCH (08:05)
[2016-08-02] MEDS: Magnesium Oxide 400 MG TABLET PO SCH ×2 (08:05→21:06)
[2016-08-02] MEDS: SPIRONOLACTONE 25 MG TABLET PO SCH (08:06)
[2016-08-02] MEDS: MULTIVIT W/ MINERALS 1 TAB TABLET PO SCH (08:07)
[2016-08-02] MEDS: METOPROLOL SUCCINATE (XL) 50 MG TAB.PRT.SR PO SCH (08:07)
[2016-08-02] MEDS: FUROSEMIDE 20 MG TABLET PO SCH (08:09)
[2016-08-02] MEDS: APIXABAN 5 MG TABLET PO SCH ×2 (08:09→21:06)
[2016-08-02] MEDS ORDERED: SODIUM CHLORIDE 0.9% 500 ML IV SCH (08:55)
[2016-08-02] MEDS ORDERED: PUMP TUBING ONE (09:01)
[2016-08-02] MEDS ORDERED: Potassium Chloride ORAL SOLN 20 MEQ/15 ML UDCUP PO SCH (10:20)
[2016-08-02] MEDS ORDERED: Magnesium Oxide 400 MG TABLET PO ONE (11:15)
[2016-08-02] MEDS ORDERED: METOPROLOL TARTRATE 1 MG/ML 5ML VIAL IV ONE ×2 (11:53→11:55)
--- NOTE | 2016-08-02 12:44 | PDOC43 ---
- Subjective Chief Complaint: shoulder pain, weight loss. Poorly controlled tachycardia since admit worsening tachycardia this am despite IV metoprolol. Subjective: Reports Pain Tolerable, Reports Tolerating Diet Well, Reports Urinating Without Difficulty (incontinent with some borderline elevation in PVR) , Denies Shortness of Breath, Denies Chest Pain, Denies Nausea, Denies Vomiting , Denies Fever - Objective Vital Signs Temperature 97.7 F 08/02/16 07:22 Pulse Rate 145 08/02/16 12:02 Respiratory Rate 20 08/02/16 12:02 Blood Pressure 152/66 08/02/16 12:02 O2 Saturation by Pulse Oximetry 100 08/02/16 12:02 Oxygen Delivery Method Room Air Oxygen Flow Rate 0 Intake and Output 08/01/16 08/02/16 08/03/16 06:59 06:59 06:59 Intake Total 887 1000 Output Total 1422 910 Balance -535 90 General: Alert, Cooperative, No Acute Distress HEENT: Mucous membr. moist/pink Lungs: Clear to Auscultation Bilaterally Cardiovascular: Irregular (with tachycardia and rates up to 180bpm) Abdomen: Soft, Normal Bowel Sounds, Non-Distended, No Tenderness Extremities: Other (tight shouler swollen and eccymotic), No Edema Peripheral Pulses: Radial (L): 2+, Radial (R): 2+ Skin: Warm, Dry, Intact Laboratory 08/02/16 05:20 08/02/16 05:20 08/02/16 05:20 RBC 3.76 L MCV 97.9 H MCH 32.7 H RDW 16.9 H Calcium 8.4 L Magnesium 1.6 L Total Bilirubin 3.8 H AST 90 H Alkaline Phosphatase 116 H Total Protein 6.2 L Albumin 3.0 L Albumin/Globulin Ratio 0.9 L Current Medications: Current meds reviewed in EMR. - Problems: Assessment/Plan (1) Fracture, humerus closed Qualifiers: Encounter type: subsequent encounter Humerus Location: proximal Fracture alignment: displaced Laterality: right Status: Acute Assessment/Plan: CT had suggested pathologic fracture, but initial review with ortho does not feel this way. Dr Gamble mentions MRI could help sort out if there was a lytic lesion (vs hematoma) In the meantime, using vicodin for pain no nSAID due to Eliquis and sling - appreciate Dr Gamble bringing sling, anticipate outpatient management by Dr Gamble. (2) Positive blood culture Status: Ruled-out Assessment/Plan: Coag neg staph, suspect contaminant. Will monitor for other problems, but doubt this is significant. Follow up blood cultures negative so far. (3) Alcoholic cardiomyopathy Status: Chronic Assessment/Plan: Last LVEF was 30% on echo done 04/15 Stable. Elevated BNP; anticipate resumption of diuretics (4) Alcoholism Status: Chronic Assessment/Plan: CIWA. Lorazepam was given but currently held due to sedation, and monitor. Banana bag given. Started on Seroquel 07/29 pm; was agitated, climbing out of bed previously, better now. With agitation and reported confusion suspect due to alcohol withdrawal (5) Atrial fibrillation Qualifiers: Atrial fibrillation type: chronic Qualifier Code: (I48.2) Chronic atrial fibrillation Status: Chronic Assessment/Plan: Rate poorly controlled on beta allen. Anticoagulated, will start Digitalis. Is followed by [facility] but missed several appointments including angiogram. (6) Hypertension Qualifiers: Hypertension type: essential hypertension Qualifier Code: (I10) Essential (primary) hypertension Status: Chronic Assessment/Plan: stable. Continue meds. (7) Hx of traumatic brain injury Status: Suspected Assessment/Plan: Chronic, stable. (8) Blood loss anemia Status: Acute Assessment/Plan: suspect related to fracture blood loss, more than usual due to Eliquis. Good improvement in Hb with transfusion. Iron studies not suspicious for deficiency. (9) Abnormal chest CT Status: Acute Assessment/Plan: Idiopathic pulmonary nodules Suggests granulomatous dz, doing testing - PPD, quantiferon (should be back by 1 /3), AFB. FHx TB, but pt reports previous neg testing. Saturations 100% on RA. (10) Elevated PSA Status: Acute Assessment/Plan: PSA was 15.8 Uncertain significance, but would doubt this is related to the TNTC nodules on lungs. Having some urinary retention up to 900cc this am-Jensen catheter placed and will stay in until seen by urology as an outpatient. (11) Encephalopathy acute Status: Suspected Assessment/Plan: Suspected alcohol withdrawal, possible dementia as well. sister reports increasing confusion over last month. Started lactulose. Hold benzodiazepines, other sedating meds. CT head without acute changes. (12) Hepatitis C infection Qualifiers: Viral hepatitis chronicity: chronic Hepatic coma status: without hepatic coma Qualifier Code: (B18.2) Chronic viral hepatitis C Status: Chronic Assessment/Plan: another new problem that may benefit from outpatient GI follow up. 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 Disposition: plan adjust meds to control heart rate, checking PPD/TB testing. Anticipate may require placement. Needs GI, Urology and Pulmonology follow up Additional Comments: Systems Cardiovascular - appears stable Pulmonary - sats good, appears stable. Granulomatous versus metastatic dz on lungs noted, testing for TB in progress. ID - pos blood culture, felt to be false pos; testing for TB pending. PPD appears neg so far Hepatic - ammonia neg. sl improvement in LFTs, has chronic hepatitis C and chronic liver disease. Heme/Onc - hemoglobin improved after transfusion; checking for iron def. Elevated PSA noted. Renal - stable. FEN - not eating today, consider IVF. Derm - Neuro - chronic alcoholism; reported confusion over last month, marked sedation sl improved(w/d vs med vs hep enceph vs other) - bladder scan shows sig. urinary retention. Renal status stable. Elevated PSA noted.
[2016-08-02] MEDS: DIGOXIN 0.25 MG/ML AMP IV SCH ×3 (13:16→21:05)
[2016-08-02 14:26] LABS: QUANTIFERON GOLD TB Indet - Lo Mit (()); TB - NIL -0.002 IU/mL (())
[2016-08-02] MEDS: HYDROCODONE/ACETAMINOPHEN 5/325MG TABLET PO PRN ×2 (15:11→22:12)
[2016-08-02] MEDS ORDERED: LORAZEPAM 2 MG/ML 1ML SDV ONE (22:01)
[2016-08-02] MEDS: LORAZEPAM 2 MG/ML 1ML SDV IV PRN (22:08)
[2016-08-03] MEDS: DIGOXIN 0.25 MG/ML AMP IV SCH (00:54)
[2016-08-03] MEDS: HYDROCODONE/ACETAMINOPHEN 5/325MG TABLET PO PRN ×2 (04:07→22:17)
[2016-08-03 08:02] LABS: CALCIUM 8.2 mg/dL (8.6-10.3); MAGNESIUM 1.5 mg/dL (1.9-2.7)
[2016-08-03] MEDS ORDERED: MAGNESIUM SULFATE 2 G/50 ML 2 G in Premix (Water) 50 ml 1 EACH IV ONE (08:36)
[2016-08-03] MEDS: Potassium Chloride ORAL SOLN 20 MEQ/15 ML UDCUP PO SCH ×3 (09:07→21:00)
[2016-08-03] MEDS: APIXABAN 5 MG TABLET PO SCH ×2 (09:09→21:00)
[2016-08-03] MEDS: METOPROLOL SUCCINATE (XL) 50 MG TAB.PRT.SR PO SCH (09:09)
[2016-08-03] MEDS: ASPIRIN (ENTERIC COATED) 81 MG TABLET.EC PO SCH (09:10)
[2016-08-03] MEDS: MULTIVIT W/ MINERALS 1 TAB TABLET PO SCH (09:10)
[2016-08-03] MEDS: Magnesium Oxide 400 MG TABLET PO SCH ×2 (09:10→21:00)
[2016-08-03] MEDS: LACTULOSE 20 G/30 ML UDCUP PO SCH (09:12)
[2016-08-03] MEDS ORDERED: LORAZEPAM 0.5 MG TABLET PO PRN (10:35)
--- NOTE | 2016-08-03 10:48 | PDOC43 ---
- Subjective Chief Complaint: shoulder pain, weight loss. Subjective: Reports Adequate Oral Intake, Denies Shortness of Breath, Denies Cough, Denies Chest Pain, Denies Abdominal Pain, Denies Vomiting, Denies Fever - Objective Vital Signs Temperature 98.2 F 08/03/16 07:57 Pulse Rate 92 08/03/16 07:57 Respiratory Rate 20 08/03/16 07:57 Blood Pressure 161/88 08/03/16 07:57 O2 Saturation by Pulse Oximetry 99 08/03/16 07:57 Oxygen Delivery Method Room Air Oxygen Flow Rate 0 Intake and Output 08/02/16 08/03/16 08/04/16 06:59 06:59 06:59 Intake Total 1000 2100 Output Total 910 2125 Balance 90 -25 General: Alert, Cooperative, No Acute Distress HEENT: Mucous membr. moist/pink Lungs: Clear to Auscultation Bilaterally Cardiovascular: Irregular Abdomen: Soft, Normal Bowel Sounds, Non-Distended, No Tenderness Extremities: No Edema Skin: Warm, Dry, Intact Laboratory 08/02/16 05:20 08/03/16 07:31 08/03/16 07:31 Estimated GFR 83 H Calcium 8.2 L Magnesium 1.5 L Current Medications: Current meds reviewed in EMR. - Problems: Assessment/Plan (1) Fracture, humerus closed Qualifiers: Encounter type: subsequent encounter Humerus Location: proximal Fracture alignment: displaced Laterality: right Status: Acute Assessment/Plan: CT had suggested pathologic fracture, but initial review with ortho does not feel this way. Dr Gamble mentions MRI could help sort out if there was a lytic lesion (vs hematoma) In the meantime, using vicodin for pain no nSAID due to Eliquis and sling - appreciate Dr Gamble bringing sling, anticipate outpatient management by Dr Gamble. (2) Positive blood culture Status: Ruled-out Assessment/Plan: Coag neg staph, suspect contaminant. Will monitor for other problems, but doubt this is significant. Follow up blood cultures negative so far. (3) Alcoholic cardiomyopathy Status: Chronic Assessment/Plan: Last LVEF was 30% on echo done 04/15 Stable. Elevated BNP; anticipate resumption of diuretics (4) Alcoholism Status: Chronic Assessment/Plan: CIWA. Lorazepam was given but currently held due to sedation, and monitor. Banana bag given. Started on Seroquel 12/30 pm then stopped due to sedation; was agitated last night, climbing out of bed and responded to IV Ativan, better now. With agitation and reported confusion suspect due to dementia-will resume Seroquel and PRN PO Ativan, attempt to avoid parenteral Ativan (5) Atrial fibrillation Qualifiers: Atrial fibrillation type: chronic Qualifier Code: (I48.2) Chronic atrial fibrillation Status: Chronic Assessment/Plan: Rate poorly controlled on beta allen. Anticoagulated, started Digitalis on 08/02 with improved rate control. Is followed by [facility] but missed several appointments including angiogram.- Cont PO digitalis with beta allen (6) Hypertension Qualifiers: Hypertension type: essential hypertension Qualifier Code: (I10) Essential (primary) hypertension Status: Chronic Assessment/Plan: stable. Continue meds. (7) Hx of traumatic brain injury Status: Suspected Assessment/Plan: Chronic, stable. (8) Blood loss anemia Status: Acute Assessment/Plan: suspect related to fracture blood loss, more than usual due to Eliquis. Good improvement in Hb with transfusion. Iron studies not suspicious for deficiency. (9) Abnormal chest CT Status: Acute Assessment/Plan: Idiopathic pulmonary nodules-Reviewed with Dr Miranda from [facility] and not felt to be consistent with TB especially given indet. Quantiferon gold test- consider repeat Chest CT in 8 weeks, findings of doubtful clinical significance and does not appear consistent with metastasis Saturations 100% on RA. (10) Elevated PSA Status: Acute Assessment/Plan: PSA was 15.8 Uncertain significance, but would doubt this is related to the TNTC nodules on lungs. Having some urinary retention up to 900cc this am-Jensen catheter placed and will stay in until seen by urology as an outpatient. (11) Encephalopathy acute Status: Suspected Assessment/Plan: Suspected alcohol withdrawal, probable dementia as well. sister reports increasing confusion over last month. CT head without acute changes. -resume PO Seroquel due to behavioral disturbance last night (12) Hepatitis C infection Qualifiers: Viral hepatitis chronicity: chronic Hepatic coma status: without hepatic coma Qualifier Code: (B18.2) Chronic viral hepatitis C Status: Chronic Assessment/Plan: another new problem that may benefit from outpatient GI follow up. (13) Hypokalemia Status: Acute Assessment/Plan: likely due to lasix-replacing (14) Hypomagnesemia Status: Acute Assessment/Plan: likely due to lasix-replacing (15) Malnutrition of mild degree Status: Chronic Assessment/Plan: needs follow up with PCP, may need terminal operations supervisor placement VTE Prophylaxis: on eliquis from cardiology, but if having regular falls, may be a concern about whether to continue jail. Disposition: plan adjust meds to control agitation, TB testing negative. Anticipate may require SNF placement. [facility] to assess in am for admission. Has GI and Urology follow up
--- NOTE | 2016-08-03 11:29 | CONS ---
MILADYChi [id number] : 1945 ORTHOPEDIC CONSULTATION DATE OF ADMISSION: July 29, 2016 CHIEF COMPLAINT: "I broke my right arm." HISTORY OF PRESENT ILLNESS: The patient is a 71-year-old man who is right-hand dominant who sustained a fall on some ice on July 28, 2016. The patient lives in [place] and apparently he was intoxicated. He and his family admit that he is an alcoholic. The patient was seen in the [facility] and diagnosed with a right closed proximal humerus fracture that appears to be at least three or four parts. Dr. Price obtained a CT scan which demonstrates a comminuted fracture pattern as well as possibly a soft tissue mass. It is unclear if he thinks this is may be a hematoma or something more pathologic. The patient has a comminuted fracture with the shaft almost entirely anterior to the humeral head giving this low likelihood of successful healing. At the time that the patient was seen in the emergency room the plan was for the patient to follow up with me in the office to discuss his injury. However, blood cultures were obtained and there was some concern that he may have positive blood culture so he was readmitted to the hospital on July 29, 2016. Dr. Falcon asked me to see the patient for his injury. The patient was given a sling. He does not have it today. He has significant amount of pain in his shoulder. The shoulder is quite swollen. He is on a blood thinning medication named Eliquis, which may be responsible for his extensive bruising and swelling in the right arm. Dr. Falcon due to his low hematocrit is going to transfuse the patient today and would like to know my thoughts on the patient's right shoulder whether the patient is a non-operative or surgical candidate. As mentioned before the patient is an alcoholic. His sister is here with him today. He states that he has been a heavy drinker since the age of 14. He lives with his mother in [place] and does not currently work. PAST MEDICAL: Significant for: 1. Hypertension. 2. Atrial fibrillation for which he is on Eliquis. 3. Alcoholic cardiomyopathy. 4. Alcohol abuse. 5. History of a closed head injury. PAST SURGICAL HISTORY: Is significant for a possible subdural hematoma evacuation. ALLERGIES: No known drug allergies. MEDICATIONS: Include: 1. Lisinopril. 2. Eliquis. 3. Aspirin. 4. Amitriptyline. SOCIAL HISTORY: As mentioned, the patient is unemployed. He does smoke cigarettes and lives with his mother in [place]. REVIEW OF SYSTEMS: The patient notes no previous problems with the right shoulder. No signs of any recent weight loss, or fevers or chills. No recent colds. PHYSICAL EXAM: GENERAL: The patient is alert and somewhat oriented. The patient does have trouble with the date, however he knows that he is at [facility] and why he is here due to his right shoulder. He understands that he is currently being worked up for a possible infection. However, the patient is a poor historian. FOCUSED EXAM ON THE RIGHT UPPER EXTREMITY: Demonstrates extensive swelling and bruising of the right shoulder. Any motion of the right shoulder is painful. He can actively flex and extend his right elbow. He has gross sensation to light touch in the distribution of the median, ulnar and radial nerves. He has a 2+ radial pulse. He is nontender to the touch over his elbow and forearm. IMAGING: From July 28, 2016, I looked at the patient AP and lateral of the humerus and x-rays of the patient's shoulder which shows a comminuted fracture of the proximal humerus. I suspect that this is a three or four part fracture. A CT scan performed on the same day does show comminution of the fracture along with anteriorizatoin of the shaft to the head itself. The head is still in the glenoid vault, however there is a fracture at least of the greater tuberosity and possible to the lesser tuberosity as well making this a possible four-part fracture. LABORATORIES: The patient does have a hematocrit 20 today. ASSESSMENT AND PLAN: The patient is a 71-year-old male right-hand dominant with a proximal humerus three or four part fracture which is comminuted with a hematocrit of 20 and a history of alcohol abuse. I spoke to the patient as well as his family about their options. At this point the patient's anticoagulation and my concern for his compliance with a surgery may preclude us going ahead with a surgical procedure. I explained to the patient and his sister and his mother also here today about the importance of compliance after surgery. Especially something that would require possibly a shoulder replacement, such as hemiarthroplasty or a reverse for his persistent problem. In terms of his swollen arm currently at this time would not be an appropriate time to operate on this shoulder. I would anticipate that the patient would see me back in the office where we could get repeat x-rays and again talk to him about his ability to be compliant with any surgical recommendations. After a description of this and spending close to 15 minutes with the patient and his family, his family strongly believes that nonoperative treatment may be better for him. We will continue to monitor him while he is in the hospital. He was given a sling today and he will follow up with me in the office in [place] where we can further our discussion about his right shoulder. I also brought up with the medical doctors that if he is such a fall risk potentially having him on Eliquis may not be as good for the patient. Although this may increase his stroke risk, aspirin may be sufficient at this point in time. I talked used Dr. Falcon about this but he says that this is up to his primary care provider. Job [id number] cc: [facility]
[2016-08-03] MEDS: QUETIAPINE FUMARATE 25 MG TABLET PO SCH (21:00)
[2016-08-04] MEDS: HYDROCODONE/ACETAMINOPHEN 5/325MG TABLET PO PRN ×3 (03:15→17:34)
[2016-08-04 07:21] LABS: ABSOLUTE NEUTROPHIL COUNT 4.7 K/mm3 (1.8-7.7); BASO # 0.1 K/mm3 (0.0-0.2); BASO % 0.7 % (0.2-1.0); EOS # 0.1 (0.0-0.5); EOS % 1.3 % (0.9-2.9); HEMATOCRIT 32.8 % (32.0-52.0); HEMOGLOBIN 11.1 gm/l (14.0-18.0); IMM NEUT% 0.4 % (0-1); LYMPH # 1.3 (1.0-4.8); LYMPH % 18.2 % (15-45); MEAN CELL VOLUME 98.5 fl (80.0-94.0); MEAN CORPUSCULAR HEMOGLOBIN 33.3 pg (27.0-31.0); MEAN CORPUSCULAR HGB CONC 33.8 g/dl (33.0-37.0); MONO # 0.9 (0.0-0.8); MONO % 12.4 % (4-12); PLATELET COUNT 136 K/mm3 (130-400)
[2016-08-04 07:32] LABS: ALB/GLOB RATIO 0.9 (>1.0); ALBUMIN 2.5 gm/dL (3.5-5.7); CALCIUM 8.1 mg/dL (8.6-10.3); MAGNESIUM 1.9 mg/dL (1.9-2.7)
[2016-08-04] MEDS: METOPROLOL SUCCINATE (XL) 50 MG TAB.PRT.SR PO SCH (11:07)
[2016-08-04] MEDS: MULTIVIT W/ MINERALS 1 TAB TABLET PO SCH (11:07)
[2016-08-04] MEDS: ASPIRIN (ENTERIC COATED) 81 MG TABLET.EC PO SCH (11:08)
[2016-08-04] MEDS: DIGOXIN 0.25 MG TABLET PO SCH (11:08)
[2016-08-04] MEDS: Magnesium Oxide 400 MG TABLET PO SCH ×2 (11:08→20:50)
[2016-08-04] MEDS: APIXABAN 5 MG TABLET PO SCH ×2 (11:09→20:50)
[2016-08-04] MEDS: Potassium Chloride ORAL SOLN 20 MEQ/15 ML UDCUP PO SCH ×3 (11:12→20:51)
--- NOTE | 2016-08-04 14:24 | PDOC43 ---
- Subjective Chief Complaint: shoulder pain, weight loss. Subjective: Reports Pain Tolerable, Denies Shortness of Breath, Denies Chest Pain, Denies Vomiting, Denies Fever - Objective Vital Signs Temperature 98 F 08/04/16 11:00 Pulse Rate 90 08/04/16 11:00 Respiratory Rate 16 08/04/16 11:00 Blood Pressure 133/73 08/04/16 11:00 O2 Saturation by Pulse Oximetry 99 08/04/16 11:00 Oxygen Delivery Method Room Air Oxygen Flow Rate 0 Intake and Output 08/03/16 08/04/16 08/05/16 06:59 06:59 06:59 Intake Total 2100 1935 Output Total 2125 925 Balance -25 1010 General: Alert, Cooperative, No Acute Distress HEENT: Mucous membr. moist/pink Lungs: Clear to Auscultation Bilaterally Cardiovascular: Regular Rate and Rhythm Abdomen: Soft, Normal Bowel Sounds, Non-Distended, No Tenderness Extremities: No Edema Skin: Warm, Dry, Intact Laboratory 08/04/16 06:23 08/04/16 06:23 08/04/16 06:23 RBC 3.33 L MCV 98.5 H MCH 33.3 H RDW 16.0 H Anion Gap 7 L Estimated GFR 83 H Calcium 8.1 L Total Bilirubin 2.7 H AST 51 H Total Protein 5.3 L Albumin 2.5 L Albumin/Globulin Ratio 0.9 L Current Medications: Current meds reviewed in EMR. - Problems: Assessment/Plan (1) Fracture, humerus closed Qualifiers: Encounter type: subsequent encounter Humerus Location: proximal Fracture alignment: displaced Laterality: right Status: Acute Assessment/Plan: CT had suggested pathologic fracture, but initial review with ortho does not feel this way. Dr Gamble mentions MRI could help sort out if there was a lytic lesion (vs hematoma) In the meantime, using vicodin for pain no nSAID due to Eliquis and sling - appreciate Dr Gamble bringing sling, anticipate outpatient management by Dr Gamble. (2) Alcoholic cardiomyopathy Status: Chronic Assessment/Plan: Last LVEF was 30% on echo done 04/15 Stable. Elevated BNP; no S/S of fluid overload (3) Alcoholism Status: Chronic Assessment/Plan: Off CIWA. Lorazepam was given but currently held due to sedation, and monitor. No evidence of alcohol withdrawal currently and last drink was on 07/28. Banana bag given. Started on Seroquel 07/29 pm then stopped due to sedation; was agitated 08/02, climbing out of bed and responded to IV Ativan, better now. With agitation and reported confusion suspect due to dementia-on Seroquel and PRN PO Ativan, has not needed IV meds since 08/02 (4) Atrial fibrillation Qualifiers: Atrial fibrillation type: chronic Qualifier Code: (I48.2) Chronic atrial fibrillation Status: Chronic Assessment/Plan: Rate poorly controlled on beta allen. Anticoagulated, started Digitalis on 08/02 with improved rate control. Is followed by [facility] but missed several appointments including angiogram.- Cont PO digitalis with beta allen (5) Hypertension Qualifiers: Hypertension type: essential hypertension Qualifier Code: (I10) Essential (primary) hypertension Status: Chronic Assessment/Plan: stable. Continue meds. (6) Hx of traumatic brain injury Status: Suspected Assessment/Plan: Chronic, stable. (7) Blood loss anemia Status: Acute Assessment/Plan: suspect related to fracture blood loss, more than usual due to Eliquis. Good improvement in Hb with transfusion. Iron studies not suspicious for deficiency. (8) Abnormal chest CT Status: Acute Assessment/Plan: Idiopathic pulmonary nodules without any clear pulmonary diagnosis-Reviewed with Dr Miranda from [facility] and not felt to be consistent with TB especially given indet. Quantiferon gold test- consider repeat Chest CT in 8 weeks, findings of doubtful clinical significance and does not appear consistent with metastasis or TB Saturations 100% on RA. (9) Elevated PSA Status: Acute Assessment/Plan: PSA was 15.8 Suspect BPH versus prostate cancer with symptoms of bladder outlet obstruction requiring Jensen. Had PVR up to 900cc -Jensen catheter placed and will stay in until seen by urology as an outpatient. (10) Encephalopathy acute Status: Suspected Assessment/Plan: Suspected alcohol withdrawal, probable dementia as well. sister reports increasing confusion over last month. CT head without acute changes. -resume PO Seroquel due to behavioral disturbance on 08/02, seems better (11) Hepatitis C infection Qualifiers: Viral hepatitis chronicity: chronic Hepatic coma status: without hepatic coma Qualifier Code: (B18.2) Chronic viral hepatitis C Status: Chronic Assessment/Plan: another new problem that may benefit from outpatient GI follow up. (12) Hypokalemia Status: Acute Assessment/Plan: likely due to lasix-resolved (13) Hypomagnesemia Status: Acute Assessment/Plan: likely due to lasix-resolved (14) Malnutrition of mild degree Status: Chronic Assessment/Plan: needs follow up with PCP, may need halfway placement VTE Prophylaxis: on eliquis from cardiology, but if having regular falls, may be a concern about whether to continue halfway. Disposition: [facility] has agreed to accept patient in am if his behaviors remain stable. Has GI and Urology follow up
[2016-08-04] MEDS: QUETIAPINE FUMARATE 25 MG TABLET PO SCH (20:50)
[2016-08-05] MEDS: METOPROLOL SUCCINATE (XL) 50 MG TAB.PRT.SR PO SCH (09:31)
[2016-08-05] MEDS: MULTIVIT W/ MINERALS 1 TAB TABLET PO SCH (09:31)
[2016-08-05] MEDS: Potassium Chloride ORAL SOLN 20 MEQ/15 ML UDCUP PO SCH (09:31)
[2016-08-05] MEDS: Magnesium Oxide 400 MG TABLET PO SCH (09:31)
[2016-08-05] MEDS: APIXABAN 5 MG TABLET PO SCH (09:31)
[2016-08-05] MEDS: ASPIRIN (ENTERIC COATED) 81 MG TABLET.EC PO SCH (09:41)
[2016-08-05 11:26] VITALS: BP 145/89
[2016-08-05] MEDS: DIGOXIN 0.25 MG TABLET PO SCH (11:48)
[2016-08-05] MEDS: HYDROCODONE/ACETAMINOPHEN 5/325MG TABLET PO PRN (11:48)
--- NOTE | 2016-08-05 13:05 | DS ---
Chi Bell [id number] DATE OF ADMISSION: July 29, 2016 DATE OF DISCHARGE: August 05, 2016 DISCHARGE DIAGNOSES: 1. Acute blood loss anemia due to a closed right humerus fracture associated with chronic anticoagulation from Eliquis. 2. Lactic acidosis probably due to the anemia. 3. Abnormal chest CT, possible prior granulomatous disease of uncertain significance, consider follow up CT in 8 weeks. 4. Alcoholism with acute alcohol withdraw and alcoholic hallucinosis. 5. Chronic atrial fibrillation. 6. Newly diagnosed chronic hepatitis C infection. 7. 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 8. Acute encephalopathy, multifactorial. 9. Possible senile dementia. 10. History of traumatic brain injury. 11. Elevated PSA with bladder outlet obstruction consistent with prostate cancer versus benign prostatic hypertrophy with a PSA level of 15.8. 12. Hyperbilirubinemia and elevated AST levels likely due to liver disease as mentioned above. 13. Hypokalemia and hypomagnesemia. 14. Idiopathic cardiomyopathy with an ejection fraction of 30% on previous echocardiography, possible alcoholic related. 15. Mild malnutrition. PROCEDURES PERFORMED DURING THE HOSPITALIZATION: Included a transfusion of 2 units of packed red blood cells which was performed on July 30, 2016. TO SUMMARIZE THE ADMISSION AND HOSPITALCOURSE: The patient is a 71-year-old male with medical problems as noted above who presented due to concerns about multiple lab abnormalities who initially was seen in the emergency department on July 28 after a fall on his right shoulder. He sustained a proximal right humerus fracture and at the time he had multiple lab abnormalities. He was called back to the emergency department due to positive blood culture which turned out to be a likely contaminate, but on return back to the emergency department he was found to have an anemia with a hemoglobin down to 9.1, mild creatinine elevation up to 1.5, hyperbilirubinemia of 4.5, AST level of 105, ALT level of 63. He was reevaluated in the emergency department and CT of the chest was done along with his abdomen, pelvis, brain, soft tissue. He had some sub-centimeter foci in the lungs possibly consistent with granulomatous disease versus metastatic disease. He was admitted. He was evaluated with a QuantiFERON Gold test. He had close monitoring after his admission and his hemoglobin dropped down from 9.1 to 7.1 on July 30, at which point he was transfused 2 units of pack red blood cells. Post transfusion his hemoglobin is stabilized in the range of 11. He has had some mild thrombocytopenia during his stay which is improved by the time of discharge. He did develop some worsening encephalopathy felt to be due to alcohol withdraw, but has had persistent disorientation thought to be due to some underlying dementia. His lactic acidosis of 4.4 improved down to 2.8 with hydration. He did have some low magnesium levels requiring replacement and low potassium levels down to a low of 2.9 replaced thought to be due to initiation of diuretic therapy which was subsequently discontinued. He had some tachycardia associated with atrial fibrillation with heart rates up into the 180's despite beta blockade and was started on digitalis with improvement in his rate control. He had some nighttime encephalopathy thought to be owning managed with Seroquel and by August 05 was felt to be medically stable. He was accepted at [facility] for ongoing rehab. His abnormal chest CT was reviewed remotely with [facility]. It was not felt to be consistent with metastatic disease or active tuberculosis. His QuantiFERON Gold testing was indeterminate and the patient was not felt to have active tuberculosis based on these findings. A follow up chest CT in 6 to 8 weeks was suggested to ensure resolution or to reevaluate the abnormality seen on his chest CT which remained poorly characterized. During his stay he did have some voiding difficulties and a postvoid residual as high as 900. A Jensen catheter was placed. He also had a PSA level measured during his stay which was elevated at 15.8. PHYSICAL EXAMINATION: VITAL SIGNS: At discharge temperature 98.2, pulse 91, blood pressure 145/89, respirations 16, oxygen saturation 99% on room air. Body mass index 19, weight is 47.3 kg. GENERAL: This is a slightly thin elderly male in no acute distress. HEENT: Shows some signs of fascial trauma remotely. No oral lesions. NECK: Supple without lymphadenopathy or thyromegaly. LUNGS: Clear to auscultation bilaterally. CARDIOVASCULAR: Reveals an irregular rhythm without a murmur. ABDOMEN: Soft, nontender, nondistended with positive bowel sounds. EXTREMITIES: Show no peripheral edema. He has swelling and ecchymosis around the proximal right humerus and his right arm is in a sling. He has 2+ radial pulses bilaterally. SKIN: Warm, dry, and intact. LABORATORY STUDIES ON THE DAY OF DISCHARGE: CBC last on August 04 showed a white count of 7.1, hemoglobin of 11.1, and a platelet count of 136,000. The last chemistry profile on August 04 showed a sodium of 134, potassium 4.1, carbon dioxide 27, BUN 14, creatinine 0.9, glucose 107, magnesium 1.9, total bilirubin 2.7, AST 51, ALT 35, albumin is 2.5. DISPOSITION: [facility]. He will get physical therapy and occupational therapy services, evaluate and treat. Weightbearing as tolerated. Right arm should remain in a sling. He will have skin care, bowel care, podiatry care per house protocol. DISCHARGE MEDICATIONS: 1. Aspirin 81 mg daily. 2. Metoprolol succinate 100 mg daily. 3. Lisinopril 20 mg daily. 4. Eliquis 5 mg twice daily. 5. Seroquel 12.5 mg at bedtime. 6. Multivitamin with minerals one daily. 7. Ativan 0.5 mg up to three times daily as needed for anxiety. 8. Dewar 0.5 to 1 tablet every 4 hours as needed for pain. 9. Digitalis 0.25 mg daily at noon. FOLLOW UP: He has follow up scheduled with Dr. Ha Forbes for positive hepatitis C antibody. Hepatitis C RNA quantitative panel is pending and that appointment is scheduled on August 09, 2016 at 10:15 a.m. He has been referred to Dr. Sudhakar Bray for elevated PSA and bladder outlet obstruction and has chronic indwelling Jensen. That appointment has not been scheduled yet. He should be contacted by Dr. Bray office. He has follow up with Dr. Guido Gamble regarding his proximal right humerus fracture on August 08 at 8:15 a.m. He has follow up with his primary care provider for the all the above on August 12 at 8:50 a.m. JOB: [id number] CC: Dr. Andrei Oliver. Dr. Bray. Dr. Gamble [facility].
== END 2016-08-05 12:45 | DRG 811 ==
LOC: ED 13:57 → MS 20:22
PROVIDERS: ADMIT Family Medicine; ATTEND Family Medicine
PROC: 30233N1 Transfusion of Nonautologous Red Blood Cells into Peripheral Vein, Percutaneous Approach (ICD-10-PCS; principal; 2016-07-29)
DX: D62 Acute posthemorrhagic anemia (principal); G93.40 Encephalopathy, unspecified; S42.201A Unspecified fracture of upper end of right humerus, initial encounter for closed fracture; E87.2 Acidosis; I42.9 Cardiomyopathy, unspecified; E46 Unspecified protein-calorie malnutrition; R91.8 Other nonspecific abnormal finding of lung field; F10.20 Alcohol dependence, uncomplicated; I48.2 Chronic atrial fibrillation; B19.20 Unspecified viral hepatitis C without hepatic coma; K76.89 Other specified diseases of liver; F03.90 Unspecified dementia, unspecified severity, without behavioral disturbance, psychotic disturbance, mood disturbance, and anxiety; Z87.820 Personal history of traumatic brain injury; R97.20 Elevated prostate specific antigen [PSA]; E80.6 Other disorders of bilirubin metabolism; E87.6 Hypokalemia; E83.42 Hypomagnesemia; W01.0XXA Fall on same level from slipping, tripping and stumbling without subsequent striking against object, initial encounter; Y92.009 Unspecified place in unspecified non-institutional (private) residence as the place of occurrence of the external cause